=== PATIENT | female | born 1975 | race Caucasian/White ===

== ENCOUNTER 2019-08-25 11:18 | Emergency (ER) | payer OTHER ==
[~2019-08-25] VITALS: Ht 157.5 cm; Wt 80.0 kg
[2019-08-25 11:23] VITALS: BP 121/70; TEMP 97.8
[2019-08-25] MEDS ORDERED: SINGULAIR 110 MG/TAB PO (11:48)
[2019-08-25] MEDS ORDERED: TESSALON PERLE200 MG PO (13:48)
[2019-08-25] MEDS ORDERED: PREDNISONE20 MG PO (13:49)
[2019-08-25 13:50] VITALS: PULSE 90
== END 2019-08-25 13:57 | disposition home or self-care (01) ==
LOC: COL.ER 11:18
DX: J45.901 Unspecified asthma with (acute) exacerbation (principal); J06.9 Acute upper respiratory infection, unspecified